=== PATIENT | female | born 1965 | race Caucasian/White ===

== ENCOUNTER → 2017-06-27 | Outpatient (CLI) | payer BC | END | disposition home or self-care (01) | LOC: PCVCIMAG 08:34 | DX: I07.1 Rheumatic tricuspid insufficiency (principal); R06.00 Dyspnea, unspecified; R00.2 Palpitations | CPT/HCPCS: 93306 ==

== ENCOUNTER → 2017-08-12 | Outpatient (CLI) | payer BC ==
[~2017-08-12] MED LIST: DIAZEPAM 10 MG TABLET.; IOHEXOL 350 MG/ML 100 ML VIAL.; IOHEXOL 350 MG/ML 50 ML VIAL.; IV NORMAL SALINE 500ML BAG 500 ML; MIDAZOLAM HCL/PF 2 MG/2 ML VIAL.; fentaNYL PF VIAL 100 MCG/2 ML VIAL
== END | disposition home or self-care (01) ==
LOC: PCVCINTER 11:47
DX: R94.39 Abnormal result of other cardiovascular function study (principal); I11.9 Hypertensive heart disease without heart failure
CPT/HCPCS: 93458; C1751; C1769; C1894; J1644; J2250; J3010; J7040; Q9967